=== PATIENT | female | born 1955 | race Caucasian/White ===

== ENCOUNTER 2020-05-14 20:36 | Inpatient (IN) | payer MEDICARE, MEDICAID ==
[~2020-05-14] VITALS: Ht 154.9 cm; Wt 75.5 kg
[2020-05-14] MEDS ORDERED: dexamethasone sod phosphate 10mg/ml inj IV STA (21:22)
--- NOTE | 2020-05-14 21:30 | NUR ---
x ray at bedside
[2020-05-14] MEDS ORDERED: DOXYCYCLINE 100MG CAPSULE PO STA (21:37)
[2020-05-14] MEDS ORDERED: normal saline 1000ML IV soln IV ONE (21:40)
[2020-05-14] MEDS ORDERED: CefTRIAXone 2gm/D5W 50ml BAG 50 ML IV ONE (21:40)
[2020-05-14] MEDS ORDERED: ondansetron/PF 4mg/2ml inj IV ONE (21:40)
[2020-05-14] MEDS ORDERED: iohexol 350MG/ML 100ml bottle IV ONE (22:00)
[2020-05-14 22:43] LABS: D-DIMER 4.98 MG/L FEU (0-0.50); PARTIAL THROMBOPLASTIN TIME 21 SECONDS (22-32)
[2020-05-14 22:53] LABS: ALANINE AMINOTRANSFERASE 24 U/L (12-78); ALBUMIN 3.8 G/DL (3.4-5.0); ALBUMIN/GLOBULIN RATIO 0.9 (1.1-1.5); ALKALINE PHOSPHATASE 36 IU/L (46-116); ANION GAP 4 (8-16); ASPARTATE AMINO TRANSFERASE 13 U/L (10-37); BILIRUBIN,TOTAL 0.4 MG/DL (0.1-1.0); BLOOD UREA NITROGEN 22 MG/DL (7-18); BUN/CREATININE RATIO 25.3 (6.6-38.0); C-REACTIVE PROTEIN 2.26 MG/DL (0.0-0.5); CHLORIDE 95 MMOL/L (99-107); CREATININE 0.87 MG/DL (0.40-0.90); FERRITIN 170 NG/ML (8-252); GLUCOSE 215 MG/DL (70-104); LACTATE DEHYDROGENASE 222 U/L (81-234); POTASSIUM 4.3 MMOL/L (3.5-5.1); SODIUM 136 MMOL/L (135-145); TOTAL CARBON DIOXIDE 36.9 MMOL/L (24-32); eGFR 66 ML/MIN
[2020-05-14 22:54] LABS: BASOPHILS # (AUTO) 0.1 X10'3 (0-0.2); BASOPHILS % (AUTO) 0.6 % (0-1); EOSINOPHILS # (AUTO) 0.3 X10'3 (0-0.9); EOSINOPHILS % (AUTO) 2.2 % (0-6); HEMATOCRIT 41.6 % (35.0-45.0); HEMOGLOBIN 14.1 g/dl (12.0-16.0); LYMPHOCYTES # (AUTO) 1.3 X10'3 (1.1-4.8); LYMPHOCYTES % (AUTO) 10.1 % (21-51); MEAN CORPUSCULAR HEMOGLOBIN 29.2 PG (27.0-31.0); MEAN CORPUSCULAR HGB CONC 33.8 g/dL (33.0-36.5); MEAN CORPUSCULAR VOLUME 86.5 FL (78-98); MEAN PLATELET VOLUME 9.8 FL (7.4-10.4); MONOCYTES % (AUTO) 7.6 % (2-12); NEUTROPHILS # (AUTO) 10.3 X10'3 (1.8-7.7); NEUTROPHILS % (AUTO) 79.5 % (42-75); PLATELET COUNT 192 X10'3 (140-440); RED BLOOD COUNT 4.81 X10'6 (4.20-5.60); RED CELL DISTRIBUTION WIDTH 13.9 % (11.5-14.5); WHITE BLOOD COUNT 12.9 X10'3 (4.5-11.0)
[2020-05-14 22:58] LABS: CALCIUM 15.8 MG/DL (8.5-10.1)
[2020-05-14] MEDS ORDERED: ipratropium/albuterol 3ml nebule NEB ONE (23:35)
[2020-05-14] MEDS ORDERED: normal saline 1000ML IV soln IVB ONE (23:40)
[2020-05-15] VITALS (7 sets, daily range): BP systolic 136–182; BP diastolic 62–96
[2020-05-15] MEDS ORDERED: potassium Cl 20 mEq SR tablet PO PRN ×2 (00:15)
[2020-05-15] MEDS ORDERED: mag hydrox/Alum hydrox/simeth 30ml oral suspension PO PRN (00:15)
[2020-05-15] MEDS ORDERED: dextrose 50%-water 50ml dispensing syringe IV PRN ×2 (00:15)
[2020-05-15] MEDS ORDERED: magnesium 2GM in 50ml NS 50 ML IV PRN (00:15)
[2020-05-15] MEDS ORDERED: glucagon, human recombinant 1mg kit SUBCUT PRN (00:15)
[2020-05-15] MEDS ORDERED: magnesium Cl slow-release 64mg tablet PO PRN (00:15)
[2020-05-15] MEDS ORDERED: acetaminophen 325mg tablet PO PRN (00:15)
[2020-05-15] MEDS ORDERED: MESSAGE TO PHARMACY PO ONE (00:15)
[2020-05-15] MEDS ORDERED: magnesium 4gm in 100ml NS 100 ML IV PRN (00:15)
[2020-05-15] MEDS ORDERED: potassium Cl 40MEQ/1/2NS 520ml 520 ML IV PRN ×2 (00:15)
[2020-05-15] MEDS ORDERED: dextrose ORAL solution 15 GM/59 ML bottle PO PRN ×2 (00:15)
[2020-05-15] MEDS ORDERED: magnesium hydroxide 30ml (MOM) UD suspension PO PRN (00:15)
[2020-05-15] MEDS ORDERED: hydrALAZINE 20mg/ml inj. IV PRN (00:20)
[2020-05-15] MEDS ORDERED: ATOR40TA72 PO (02:27)
[2020-05-15] MEDS ORDERED: PROM25TA14 (02:27)
[2020-05-15] MEDS ORDERED: DOCU-267 PO (02:27)
[2020-05-15] MEDS ORDERED: INSU100I31 (02:27)
[2020-05-15] MEDS ORDERED: METF-950 PO (02:27)
[2020-05-15] MEDS ORDERED: METO5TAB98 PO (02:27)
[2020-05-15] MEDS ORDERED: PANT40TA54 PO (02:27)
[2020-05-15] MEDS ORDERED: CARV3.122 PO (02:27)
[2020-05-15] MEDS ORDERED: SUCR1TAB PO (02:27)
[2020-05-15] MEDS ORDERED: ALPR1TAB7 PO (02:27)
[2020-05-15] MEDS ORDERED: ONDA4TAB12 (02:27)
[2020-05-15] MEDS ORDERED: HYDR25TA4 PO (02:27)
--- NOTE | 2020-05-15 02:50 | NUR ---
RECEIVED PT FROM ER VIA [facility] FOLLOWING VERBAL REPORT FROM [facility]. ASSUMED CARE OF PT. PT PLACED IN COVID ISOLATION UNTIL INFECTION CONTROL CAN EVALUATE IN AM.
[2020-05-15] MEDS: normal saline 1000ml 1,000 ML IV SCH ×4 (02:56→23:42)
[2020-05-15] MEDS: ondansetron/PF 4mg/2ml inj IV PRN ×3 (03:00→19:29)
--- NOTE | 2020-05-15 06:30 | NUR ---
Problems reprioritized. Patient report given, questions answered & plan of care reviewed with
--- NOTE | 2020-05-15 06:48 | NUR ---
Patient in room EVA 353. I have received report from Nicole ADAM and had the opportunity to ask questions and assume patient care.
--- NOTE | 2020-05-15 07:13 | NUR ---
PAGER ID: [phone] MESSAGE: Laila- [facility]- [phone] RE: 353 Jorge Luis Can we get a [facility] Covid test per Region in infection control recommendation?
[2020-05-15] MEDS: atorvastatin 20mg tablet PO SCH (07:36)
[2020-05-15] MEDS: pantoprazole 40mg Tablet.DR PO SCH ×2 (07:37→21:15)
[2020-05-15] MEDS: carVEDilol 3.125mg tablet PO SCH ×2 (07:37→21:15)
[2020-05-15] MEDS: HYDROchlorothiazide 25mg tablet PO SCH (07:37)
[2020-05-15] MEDS: predniSONE 20 mg tablet PO SCH (07:37)
[2020-05-15] MEDS: HYDROcodone/acetaminophen 5mg/325mg tablet PO PRN ×4 (07:51→23:42)
[2020-05-15] MEDS: K and/or MAG REPLACEMENT MC SCH ×2 (08:00→20:00)
[2020-05-15] MEDS: insulin Lispro (HumaLOG) vial - multi-dose SQ SCH ×3 (09:57→19:28)
[2020-05-15] MEDS ORDERED: pneumococcal 23-VAL P-sac vacc 25 mcg/0.5ml vial IMVAC ONE (10:00)
[2020-05-15] MEDS: enoxaparin 40mg/0.4ml syringe SUBCUT SCH (12:01)
--- NOTE | 2020-05-15 12:35 | NUR ---
DM consult: A1c 9%. Pt admitted with possible COVID-19 and remains in isolation at this time. RD record label internship unable to meet pt at bedside for written/verbal DM ed. DM ed with RD contact information mailed to pt home address provided by EMR. To provide initial assessment at above date. Addendum: 05/15/20 at [address] Amended: Links added. Addendum: 05/15/20 at [address] MISTI Approves
--- NOTE | 2020-05-15 17:33 | NUR ---
PAGER ID: [phone] MESSAGE: Laila- surg- [phone] RE: 353 Jorge Luis patient requesting something stronger for pain. Please call
[2020-05-15] MEDS ORDERED: traMADol 50MG tablet PO PRN (17:35)
--- NOTE | 2020-05-15 18:07 | NUR ---
Problems reprioritized. Patient report given, questions answered & plan of care reviewed with Nicole ADAM.
--- NOTE | 2020-05-15 18:30 | NUR ---
Patient in room EVA 353. I have received report from SHARMIN and had the opportunity to ask questions and assume patient care. Addendum: 05/15/20 at 2248 by Nicole Carpenter RN REPORT WAS RECEIVED FROM LINDA
[2020-05-15] MEDS ORDERED: insulin glargine (Lantus) pen - multi-dose SQ SCH (21:00)
[2020-05-15] MEDS: docusate sod 100mg capsule PO SCH (21:15)
[2020-05-16] MEDS: normal saline 1000ml 1,000 ML IV SCH (04:55)
--- NOTE | 2020-05-16 06:05 | NUR ---
Patient in room EVA 353. I have received report from Nicole ADAM and had the opportunity to ask questions and assume patient care.
[2020-05-16] MEDS: HYDROchlorothiazide 25mg tablet PO SCH (07:26)
[2020-05-16] MEDS: predniSONE 20 mg tablet PO SCH (07:26)
[2020-05-16] MEDS: pantoprazole 40mg Tablet.DR PO SCH (07:26)
[2020-05-16] MEDS: atorvastatin 20mg tablet PO SCH (07:26)
[2020-05-16] MEDS: docusate sod 100mg capsule PO SCH (07:26)
[2020-05-16] MEDS: carVEDilol 3.125mg tablet PO SCH (07:28)
[2020-05-16 07:29] VITALS: BP 149/75
[2020-05-16] MEDS: enoxaparin 40mg/0.4ml syringe SUBCUT SCH (07:29)
[2020-05-16 07:41] LABS: BASOPHILS % (AUTO) 0.3 % (0-1); EOSINOPHILS # (AUTO) 0.2 X10'3 (0-0.9); EOSINOPHILS % (AUTO) 1.3 % (0-6); HEMATOCRIT 36.5 % (35.0-45.0); HEMOGLOBIN 12.3 g/dl (12.0-16.0); LYMPHOCYTES # (AUTO) 2.5 X10'3 (1.1-4.8); LYMPHOCYTES % (AUTO) 20.1 % (21-51); MEAN CORPUSCULAR HEMOGLOBIN 29.3 PG (27.0-31.0); MEAN CORPUSCULAR HGB CONC 33.7 g/dL (33.0-36.5); MEAN CORPUSCULAR VOLUME 86.9 FL (78-98); MONOCYTES # (AUTO) 0.8 X10'3 (0-0.9); MONOCYTES % (AUTO) 6.2 % (2-12); NEUTROPHILS # (AUTO) 8.9 X10'3 (1.8-7.7); NEUTROPHILS % (AUTO) 72.1 % (42-75); PLATELET COUNT 186 X10'3 (140-440); RED CELL DISTRIBUTION WIDTH 13.8 % (11.5-14.5); WHITE BLOOD COUNT 12.3 X10'3 (4.5-11.0)
[2020-05-16] MEDS: K and/or MAG REPLACEMENT MC SCH (08:00)
[2020-05-16 08:25] LABS: ALANINE AMINOTRANSFERASE 19 U/L (12-78); ALBUMIN 2.9 G/DL (3.4-5.0); ALBUMIN/GLOBULIN RATIO 0.9 (1.1-1.5); ALKALINE PHOSPHATASE 27 IU/L (46-116); ANION GAP 7 (8-16); ASPARTATE AMINO TRANSFERASE 11 U/L (10-37); BILIRUBIN,TOTAL 0.2 MG/DL (0.1-1.0); BLOOD UREA NITROGEN 21 MG/DL (7-18); BUN/CREATININE RATIO 26.9 (6.6-38.0); CALCIUM 10.8 MG/DL (8.5-10.1); CHLORIDE 101 MMOL/L (99-107); CREATININE 0.78 MG/DL (0.40-0.90); GLUCOSE 143 MG/DL (70-104); MAGNESIUM 1.3 MG/DL (1.5-2.4); POTASSIUM 3.8 MMOL/L (3.5-5.1); SODIUM 136 MMOL/L (135-145); TOTAL CARBON DIOXIDE 27.7 MMOL/L (24-32); TOTAL PROTEIN 6.3 G/DL (6.4-8.2); eGFR 75 ML/MIN
[2020-05-16] MEDS: insulin Lispro (HumaLOG) vial - multi-dose SQ SCH (09:36)
[2020-05-16] MEDS ORDERED: pneumococcal 23-VAL P-sac vacc 25 mcg/0.5ml vial IMVAC ONE (10:00)
--- NOTE | 2020-05-16 10:30 | NUR ---
Patient refused IV mag. She states it hurts her arm and does not want it that way. IV appears to be asymptomatic.
[2020-05-16] MEDS: HYDROcodone/acetaminophen 5mg/325mg tablet PO PRN (10:41)
[2020-05-16 11:00] VITALS: BP 154/77
--- NOTE | 2020-05-16 13:02 | NUR ---
PAGER ID: [phone] MESSAGE: Laila Surg- [phone]: Jorge Luis Wallace- Patient has high anxiety. Please call. Addendum: 05/16/20 at 1303 by Laila Sandoval RN Dr. Bravo called and address patients anxiety. Addendum: 05/16/20 at 1309 by Laila Sandoval RN Dr. Bravo stated, "give the patient a one time dose of what she takes at home."
[2020-05-16] MEDS ORDERED: AMOX-419 PO (13:07)
--- NOTE | 2020-05-16 13:08 | NUR ---
Per [facility] pharmacy patients Suboxone dose is 8mg-2mg films (3mg per day ) 03/14 film and she takes it BID. Spoke to Pavel in our pharmacy and he states that is a good order. Placed order per Dr Bravo
[2020-05-16] MEDS ORDERED: buprenorphine/naloxone 8MG-2MG SUBlingual film SL ONE ×2 (13:10→13:25)
--- NOTE | 2020-05-16 14:11 | NUR ---
PAGER ID: [phone] MESSAGE: Laila- Surg- [phone] RE: 353 Jorge Luis: per integration technician patient is negative for DVT. No hard copy report yet. Do you want us to discharge?
--- NOTE | 2020-05-16 14:59 | NUR ---
PAGER ID: [phone] MESSAGE: Laila Surg-[phone] RE: 353 Jorge Luis- preliminary vascular report in. Do you want me to go ahead with discharge? Addendum: 05/16/20 at 1500 by Laila Sandoval RN Dr. Bravo called and stated, "patient can be discharged now"
--- NOTE | 2020-05-16 16:50 | NUR ---
Patient was discharged home at 1604. She was educated on when to follow up and on diabetes. Her IV was removed and canula intact. Patient forgot her slot floorperson. Called patient and there was no answer. Air Tube Releaser at nurses station. Patient home care chaplain wheeled patient to the front and she left with her sister. Addendum: 05/16/20 at 1722 by Laila Sandoval RN Called back. Left generic voicemail for patient to call back
--- NOTE | 2020-05-17 11:35 | NUR ---
CASE MANAGEMENT DISCHARGE FOLLOW UP: Spoke with pt via telephone. Reports that she is feeling a lot better; denies CP, fever/chills, SOB. Verbalizes understanding of s/sx requiring further evaluation/emergent assistance. Verbalizes understanding of new and current medications, picked up abx this AM. Verbalizes understanding of the importance in making/keeping follow-up appointments, has appt scheduled with PCP, states that she sees her every 2 weeks. Phone call dropped.
== END 2020-05-16 16:05 | disposition home or self-care (01) | DRG 153 ==
LOC: ER 20:37 → ED HOLD 05-15 00:12 → SUR 3N 05-15 02:53
PROVIDERS: ADMIT Family Medicine; ATTEND Internal Medicine
DX: J06.9 Acute upper respiratory infection, unspecified (principal); J44.1 Chronic obstructive pulmonary disease with (acute) exacerbation; Z20.822 Contact with and (suspected) exposure to COVID-19; E11.65 Type 2 diabetes mellitus with hyperglycemia; E78.00 Pure hypercholesterolemia, unspecified; E78.5 Hyperlipidemia, unspecified; E83.52 Hypercalcemia; F41.9 Anxiety disorder, unspecified; I10 Essential (primary) hypertension; K21.9 Gastro-esophageal reflux disease without esophagitis; F17.200 Nicotine dependence, unspecified, uncomplicated; Z79.4 Long term (current) use of insulin; I25.2 Old myocardial infarction; Z79.899 Other long term (current) drug therapy
CPT/HCPCS: 36415; 71045; 71275; 80053; 82330; 82728; 83036; 83605; 83615; 83735; 83880; 84145; 84484; 85025; 85379; 85384; 85610; 85730; 86140; 87040; 87081; 87502; 87503; 87635; 90732; 93005; 93970; 94640; 94667; 94760; 96374; 99291; C9803; G0378; J0360; J0696; J1100; J1650; J1815; J2405; J3475; J7030; J7512; Q9967